=== PATIENT | male | born 1995 | race Caucasian/White ===

== ENCOUNTER 2016-10-11 22:56 | Emergency (ER) | payer OTHER ==
[~2016-10-11] VITALS: Ht 190.5 cm; Wt 113.4 kg
[2016-10-11] MEDS ORDERED: PROZ20CA11 PO (23:10)
[2016-10-11] MEDS ORDERED: WELLTAB38 PO (23:11)
[2016-10-12] MEDS ORDERED: ONDANSETRON 4MG/2ML VIAL (J2405) IV ONE (00:30)
[2016-10-12] MEDS ORDERED: NS 1,000 ML IV ONE (00:30)
[2016-10-12 01:12] LABS: BASO % 0.3 % (0.0-1.0); EOS % 0.6 % (0.0-3.0); LARGE UNSTAINED CELL # 0.1 K/mm3 (0.0-0.4); LARGE UNSTAINED CELL % 1.6 % (0.0-4.0); LYMPH # 0.9 K/mm3 (1.5-6.5); LYMPH % 16.1 % (24.0-44.0); MEAN CORPUSCULAR HEMOGLOBIN 32.2 pg (27.0-33.0); MEAN CORPUSCULAR HGB CONC 33.6 g/dl (32.0-36.5); MEAN CORPUSCULAR VOLUME 95.9 fl (80.0-96.0); MONO # 0.3 K/mm3 (0.0-0.8); MONO % 4.5 % (0.0-5.0); NEUTROPHILS # 4.2 K/mm3 (1.8-7.7); NEUTROPHILS % 76.7 % (36.0-66.0); PLATELET COUNT, AUTOMATED 120 k/mm3 (150-450); RED CELL DISTRIBUTION WIDTH 11.9 % (11.5-14.5); WHITE BLOOD COUNT 5.5 K/mm3 (4.0-10.0)
[2016-10-12 01:23] LABS: ALBUMIN 4.3 GM/DL (3.2-5.2); ALBUMIN/GLOBULIN RATIO 1.39 (1.00-1.93); ALKALINE PHOSPHATASE 59 U/L (45-117); ALT/SGPT 40 U/L (12-78); ANION GAP 13 MEQ/L (8-16); AST/SGOT 47 U/L (15-37); BILIRUBIN,DIRECT < 0.1 MG/DL (0.0-0.2); BILIRUBIN,TOTAL 0.3 MG/DL (0.2-1.0); BLOOD UREA NITROGEN 15 MG/DL (7-18); CALCIUM LEVEL 8.8 MG/DL (8.5-10.1); CARBON DIOXIDE LEVEL 24 MEQ/L (21-32); CHLORIDE LEVEL 104 MEQ/L (98-107); CREATININE FOR GFR 0.82 MG/DL (0.70-1.30); GLOMERULAR FILTRATION RATE > 60.0 (>60); GLUCOSE, FASTING 110 MG/DL (70-105); POTASSIUM SERUM 5.1 MEQ/L (3.5-5.1); SODIUM LEVEL 141 MEQ/L (136-145); TOTAL PROTEIN 7.4 GM/DL (6.4-8.2)
[2016-10-12 03:41] LABS: METHADONE URINE NEGATIVE (NEGATIVE)
[2016-10-12 04:00] VITALS: BP 108/54
== END 2016-10-12 04:02 | disposition home or self-care (01) ==
LOC: M ED 10-12 01:18
DX: F10.220 Alcohol dependence with intoxication, uncomplicated (principal); F17.210 Nicotine dependence, cigarettes, uncomplicated; F32.9 Major depressive disorder, single episode, unspecified; Z79.899 Other long term (current) drug therapy; R45.1 Restlessness and agitation
CPT/HCPCS: 36415; 80048; 80076; 80306; 85025; 96361; 96374; 99284; G0480; J2405

== ENCOUNTER 2017-05-24 09:36 | Emergency (ER) | payer OTHER ==
[~2017-05-24] VITALS: Ht 190.5 cm; Wt 111.4 kg
[~2017-05-24 09:36] MED LIST: PROZ20CA11 PO; WELLTAB38 PO
[2017-05-24] MEDS ORDERED: CLIN150C14 PO (09:44)
[2017-05-24] MEDS ORDERED: LIDO1SOL7 MT (09:44)
[2017-05-24] MEDS ORDERED: dexameTHASONE 4 MG/ML 1ML VIAL (J1100) IV ONE (10:00)
[2017-05-24] MEDS ORDERED: CLINDAMYCIN 900 MG in APPROPRIATE DILUENT 1 EA IV ONE (10:00)
[2017-05-24] MEDS ORDERED: MORPHINE 4 MG/ML 1ML SYRINGE IV ONE ×2 (10:00→11:15)
[2017-05-24 10:29] LABS: BASO % 0.5 % (0.0-1.0); EOS % 0.2 % (0.0-3.0); IMMATURE GRANULOCYTE % 0.2 % (0-0); LYMPH # 1.2 10^3/uL (1.5-6.5); LYMPH % 18.8 % (24.0-44.0); MEAN CORPUSCULAR HEMOGLOBIN 32.9 pg (27.0-33.0); MEAN CORPUSCULAR HGB CONC 34.5 g/dl (32.0-36.5); MEAN CORPUSCULAR VOLUME 95.4 fl (80.0-96.0); MONO # 0.6 10^3/uL (0.0-0.8); NEUTROPHILS # 4.4 10^3/uL (1.8-7.7); NEUTROPHILS % 71.3 % (36.0-66.0); PLATELET COUNT, AUTOMATED 114 10^3/uL (150-450); WHITE BLOOD COUNT 6.1 10^3/uL (4.0-10.0)
[2017-05-24 10:50] LABS: ANION GAP 4 MEQ/L (8-16); BLOOD UREA NITROGEN 10 MG/DL (7-18); CALCIUM LEVEL 9.2 MG/DL (8.5-10.1); CARBON DIOXIDE LEVEL 32 MEQ/L (21-32); CHLORIDE LEVEL 106 MEQ/L (98-107); CREATININE FOR GFR 0.88 MG/DL (0.70-1.30); GLOMERULAR FILTRATION RATE > 60.0 (>60); GLUCOSE, FASTING 97 MG/DL (70-105); POTASSIUM SERUM 4.3 MEQ/L (3.5-5.1); SODIUM LEVEL 142 MEQ/L (136-145)
[2017-05-24] MEDS ORDERED: LIDOCAINE W/EPINEPHRINE 1% 20ML VIAL As Ordered ONE (11:27)
[2017-05-24] MEDS ORDERED: LIDOCAINE VISCOUS 2% SOLN 15ML UDC SSP ONE (11:45)
[2017-05-24] MEDS ORDERED: NS 1,000 ML IV ONE (12:30)
[2017-05-24] MEDS ORDERED: PRED20TA PO (13:55)
[2017-05-24] MEDS ORDERED: HYCE0.1S PO ×2 (13:57→16:28)
[2017-05-24 14:21] VITALS: BP 147/71
--- NOTE | 2017-05-24 23:20 | ER ---
DATE OF CONSULTATION / PROCEDURE: 05/24/2017 He is in the emergency room at 1:30 p.m. on 05/24/2017. PREOPERATIVE DIAGNOSES: Left peritonsillar abscess and cellulitis. POSTOPERATIVE DIAGNOSES: Left peritonsillar abscess and cellulitis. PROCEDURE: Aspiration of left peritonsillar abscess. SURGEON: Dr. Romulo Ramos CUSTOMER CONTACT SPECIALIST: ANESTHESIA: INDICATIONS: This is a 21-year-old who has had a persistent sore throat for 2-3 days seen in the emergency room last night and had a CT that showed a 7.9 mm abscess forming in the low density focus in the left peritonsillar soft tissues. He did not improve today on oral antibiotics. He is in the emergency room again, so we will attempt to aspirate the pus that we see today. On examination, his uvula is just slightly off the midline. There is no obvious bulging of the soft palate. The left tonsil is quite enlarged, and it is erythematous. There is some exudate noted superiorly. It is tender to palpation, but there is no palpable soft tissue fluctuant mass. Hurricaine spray is applied to the left pharynx. 1% Xylocaine with 1:100,000 epinephrine was used to inject the soft palate and the anterior tonsillar pillar on that side. Using an 18-gauge spinal needle and a 10 mL syringe, several areas were probed and one particular area superiorly from the superior tonsillar pole yielded 2 mL of pus. Patient tolerated procedure well and will be followed up in the clinic in 3 days. He will be given prescriptions for Cleocin 300 mg three times a day, prednisone 20 mg twice a day, and Hycet elixir for pain. DESCRIPTION OF PROCEDURE: Satisfactory general endotracheal anesthesia administered, the patient placed in Trendelenburg position. A [place]-Gaurang gag was inserted. The right tonsil was grasped with an Allis clamp, retracted out of its muscular fossa using cutting cautery. Incision made on the anterior pillar 3 mm from its edge. The capsule of the tonsil was identified. The tonsil was dissected from its fossa using the cutting cautery working superiorly to inferiorly, preserving the posterior pillar in entirety. Once the tonsil was suspended only at the inferior pole, coagulation current was used to amputate the tissue. The left tonsil was removed in a similar fashion with no significant bleeding encountered. Suction and cautery was used for hemostasis. The gag was released after 3 minutes, reinspection showed no active bleeding. 0.50% Marcaine was injected into the surgical site. The patient then awakened, extubated and sent to recovery in satisfactory condition. He will discharged home with Tylenol to be alternated with Motrin and Hycet elixir. Keflex suspension 250 mg twice a day. He will be seen back in the office in a week.
== END 2017-05-24 14:51 | disposition home or self-care (01) ==
LOC: M ED 09:36
DX: J36 Peritonsillar abscess (principal); F17.220 Nicotine dependence, chewing tobacco, uncomplicated
CPT/HCPCS: 10160; 80048; 83605; 85025; 87070; 87077; 87184; 87186; 87205; 96374; 96375; 96376; 99284; J1100